=== PATIENT | male | born 1995 ===

== ENCOUNTER 2016-11-15 15:49 | Emergency (ER) | payer OTHER ==
[~2016-11-15] VITALS: Ht 167.6 cm; Wt 78.7 kg
[2016-11-15 15:58] VITALS: TEMP 36.7; Ht 167.6 cm; Wt 78.7 kg
--- NOTE | 2016-11-15 16:41 | DIAGNOSTIC IMAGING REPORT ---
CHEST ONE VIEW PORTABLE CLINICAL HISTORY: Chest Pain dyspnea COMPARISON STUDY: No previous studies for comparison. FINDINGS: The bones soft tissues and hemidiaphragms are normal. The cardiomediastinal silhouette is normal. The lungs are clear. The pulmonary vasculature is normal. IMPRESSION: Negative chest. Electronically signed by: Eliseo Escobar M.D. 11/15/2016 4:40 PM Dictated Date/Time: 11/15/2016 4:40 PM
[2016-11-15 16:51] LABS: BASO % 0.3 %; BASO ABS # 0.03 K/uL (0-0.2); COMPLETE YES; EOS % 1.3 %; HEMATOCRIT 44.8 % (42-52); IG% 0.1 %; LYMPH % 34.7 %; LYMPH ABS # 3.13 K/uL (1.2-3.4); MEAN CORPUSCULAR HEMOGLOBIN 31.9 pg (25-34); MEAN CORPUSCULAR HGB CONC 37.1 g/dl (32-36); MEAN PLATELET VOLUME 9.4 fL (7.4-10.4); MONO % 7.9 %; NEUT % 55.7 %; PLATELET COUNT 328 K/uL (130-400); RED BLOOD COUNT 5.21 M/uL (4.7-6.1); WHITE BLOOD COUNT 9.03 K/uL (4.8-10.8)
[2016-11-15 17:08] LABS: BLOOD UREA NITROGEN 17 mg/dl (7-18); BUN/CREATININE RATIO 15.5 (10-20); CALCIUM 9.2 mg/dl (8.5-10.1); CARBON DIOXIDE 29 mmol/L (21-32); CHLORIDE 103 mmol/L (98-107); GLUCOSE 109 mg/dl (70-99); POTASSIUM 3.9 mmol/L (3.5-5.1); SODIUM 140 mmol/L (136-145)
[2016-11-15 17:13] LABS: CKMB/CK RATIO 0.5 (0-3.0)
[2016-11-15] MEDS ORDERED: KETOROLAC TROMETHAMINE 30 MG/ML VIAL IV STA (17:18)
[2016-11-15 17:49] VITALS: BP 120/67; PULSE 59; O2SAT 98
--- NOTE | 2016-11-15 18:39 | EMERGENCY ROOM VISIT NOTE ---
History Report prepared by Michi: Lio Cloud Under the Supervision of: Dr. Deonte Suazo D.O. First contact with patient: 16:01 Chief Complaint: CARDIAC ASSESSMENT Stated Complaint: CHEST PAIN- REFERRED BY [facility] History of Present Illness The patient is a 21 year old male who presents to the Emergency Room with complaints of persistent left-sided chest pain that started yesterday around 1999. He says that the pain worsened earlier this morning today. He describes the pain as a pulsating pressure. The patient was seen at [facility] prior to arrival and had an EKG, which revealed an incomplete right bundle branch block. He was then referred here. The patient says he has never had this kind of pain before. The patient denies any shortness of breath, arm or jaw pain. Nothing makes the pain worse or better. He has no history of blood clots and no family history of heart disease. Denies any history of diabetes, hypertension, hyperlipidemia or CAD. He is a smoker. The patient went to [place] last month for training. He says he has no medical problems and has not had any surgeries. Denies a history of hemoptysis, history of cancer, swelling of calves, or previous blood clots. The patient denies any recent drug use. Source of History: patient Onset: Yesterday around 1999 Position: chest (left) Quality: pressure Timing: worsening (today), other (persistent) Associated Symptoms: No SOB (today) Note: Associated symptoms: Denies any arm or jaw pain. Review of Systems See HPI for pertinent positives & negatives. A total of 10 systems reviewed and were otherwise negative. Past Medical & Surgical Medical Problems: (1) No chronic problems Family History No pertinent family history Social History Smoking Status: Current Every Day Smoker Alcohol Use: occasionally Drug Use: none Marital Status: single Housing Status: lives with roommate Occupation Status: employed Current/Historical Medications No Active Prescriptions or Reported Meds Allergies Coded Allergies: No Known Allergies (Unverified , 11/15/16) Physical Exam Vital Signs Date Time Temp Pulse Resp B/P Pulse Ox O2 Delivery O2 Flow Rate FiO2 11/15/16 17:49 59 18 120/67 98 Room Air 11/15/16 16:34 Room Air 11/15/16 16:26 65 11/15/16 15:58 36.7 71 18 135/80 97 Room Air Physical Exam GENERAL: sitting up in bed, alert, well appearing, well nourished, no distress, non-toxic EYE EXAM: normal conjunctiva, PERRL and EOM's grossly intact OROPHARYNX: no exudate, no erythema, lips, buccal mucosa, and tongue normal and mucous membranes are moist NECK: supple, no nuchal rigidity, no adenopathy, non-tender LUNGS: Clear to auscultation. Normal chest wall mechanics CHEST: Reproducible left anterior chest wall tenderness HEART: no murmurs, S1 normal and S2 normal ABDOMEN: abdomen soft, non-tender, normo-active bowel sounds, no masses, no rebound or guarding. BACK: Back is symmetrical on inspection and there is no deformity, no midline tenderness, no CVA tenderness. SKIN: no rashes and no bruising UPPER EXTREMITIES: upper extremities are grossly normal. Radial pulses equal bilaterally. LOWER EXTREMITIES: No pitting edema. Calves equal bilaterally. NEURO EXAM: Normal sensorium, cranial nerves II-XII grossly intact, normal speech, no gross weakness of arms, no gross weakness of legs. Medical Decision & Procedures ER Provider Diagnostic Interpretation: Xray results per the radiologist and my interpretation. CHEST ONE VIEW PORTABLE CLINICAL HISTORY: Chest Pain dyspnea COMPARISON STUDY: No previous studies for comparison. FINDINGS: The bones soft tissues and hemidiaphragms are normal. The cardiomediastinal silhouette is normal. The lungs are clear. The pulmonary vasculature is normal. IMPRESSION: Negative chest. Electronically signed by: Eliseo Escobar M.D. 11/15/2016 4:40 PM Dictated Date/Time: 11/15/2016 4:40 PM Laboratory Results 11/15/16 16:35 Red Blood Count 5.21, Mean Corpuscular Volume 86.0, Mean Corpuscular Hemoglobin 31.9, Mean Corpuscular Hemoglobin Concent 37.1, Mean Platelet Volume 9.4, Neutrophils (%) (Auto) 55.7, Lymphocytes (%) (Auto) 34.7, Monocytes (%) (Auto) 7.9, Eosinophils (%) (Auto) 1.3, Basophils (%) (Auto) 0.3, Neutrophils # (Auto) 5.03, Lymphocytes # (Auto) 3.13, Monocytes # (Auto) 0.71, Eosinophils # (Auto) 0.12, Basophils # (Auto) 0.03 11/15/16 16:35 Test 11/15/16 16:35 White Blood Count 9.03 K/uL (4.8-10.8) Red Blood Count 5.21 M/uL (4.7-6.1) Hemoglobin 16.6 g/dL (14.0-18.0) Hematocrit 44.8 % (42-52) Mean Corpuscular Volume 86.0 fL (80-100) Mean Corpuscular Hemoglobin 31.9 pg (25-34) Mean Corpuscular Hemoglobin Concent 37.1 g/dl (32-36) Platelet Count 328 K/uL (130-400) Mean Platelet Volume 9.4 fL (7.4-10.4) Neutrophils (%) (Auto) 55.7 % Lymphocytes (%) (Auto) 34.7 % Monocytes (%) (Auto) 7.9 % Eosinophils (%) (Auto) 1.3 % Basophils (%) (Auto) 0.3 % Neutrophils # (Auto) 5.03 K/uL (1.4-6.5) Lymphocytes # (Auto) 3.13 K/uL (1.2-3.4) Monocytes # (Auto) 0.71 K/uL (0.11-0.59) Eosinophils # (Auto) 0.12 K/uL (0-0.5) Basophils # (Auto) 0.03 K/uL (0-0.2) RDW Standard Deviation 39.7 fL (36.4-46.3) RDW Coefficient of Variation 12.6 % (11.5-14.5) Immature Granulocyte % (Auto) 0.1 % Immature Granulocyte # (Auto) 0.01 K/uL (0.00-0.02) D-Dimer < 190 ug/L FEU (0-500) Anion Gap 8.0 mmol/L (3-11) Est Creatinine Clear Calc Drug Dose 104.8 ml/min Estimated GFR () 110.6 Estimated GFR (Non- 95.5 BUN/Creatinine Ratio 15.5 (10-20) Calcium Level 9.2 mg/dl (8.5-10.1) Total Creatine Kinase 215 U/L (39-308) Creatine Kinase MB 1.0 ng/ml (0.5-3.6) Creatine Kinase MB Ratio 0.5 (0-3.0) Troponin I < 0.015 ng/ml (0-0.045) Laboratory results per my review. Medications Administered Medications (Trade) Dose Ordered Sig/Tad Route Start Time Stop Time Status Last Admin Dose Admin Ketorolac Tromethamine (Toradol Inj) 30 mg NOW STAT IV 11/15/16 17:18 11/15/16 17:19 DC 11/15/16 17:46 30 MG ECG Indication: chest pain Rate (beats per minute): 63 Rhythm: normal sinus Findings: no ectopy, other (normal axis, early R-wave progression) ED Course ED COURSE: Vital signs were reviewed and showed normal vitals The patients medical record was reviewed The above diagnostic studies were performed and reviewed. ED treatments and interventions as stated above. 1612: The patient was evaluated in room A9B. A complete history and physical examination was performed. 1718: Ordered Toradol Inj 30 mg IV. 1727: Upon reevaluation, the patient is resting comfortably.I discussed my findings with the patient and he understands and agrees with the treatment plan. Based on the patients age, coexisting illnesses, exam and lab findings the decision to treat as an outpatient was made. The patient remained stable while under my care. The patient appeared well at the time of discharge. Medical Decision Differential diagnoses includes but is not limited to acute coronary syndrome, myocardial infarction, pericarditis, pulmonary embolus, aortic dissection, pneumonia, pneumothorax, musculoskeletal, shingles, esophageal. Patient is a 21-year-old male who presents the ER for chest pain located on his left side. It is reproducible on exam. Patient was referred in by [facility]. Pain has been present since 8 PM last night. No radiation or exertional symptoms. He is very active in the [employer]. No cardiac risk factors with the exception of smoking. Only PE risk factor is a recent trip to [place]. D-dimer was negative. EKG was unremarkable. Troponin was negative with chest pain greater than 8 hours. Chest x-ray was unremarkable. Remainder of labs were unremarkable. Patient was updated at bedside and discharged to follow -up with his PCP as I favor this is likely muscle skeletal chest pain. Discussed with Pt concerning signs and symptoms to watch out for. Pt was instructed to follow up with their PCP and discussed with the patient their option to return to the ED at anytime for persistent or worsening symptoms. The appropriate anticipatory guidance and out-patient management, including indications for return to the emergency department, were explained at length to the patient and understood. Impression Primary Impression: Chest pain Scribe Attestation The scribe's documentation has been prepared under my direction and personally reviewed by me in its entirety. I confirm that the note above accurately reflects all work, treatment, procedures, and medical decision making performed by me. Departure Information Dispostion Home / Self-Care Prescriptions No Active Prescriptions or Reported Meds Referrals No Doctor, Assigned (PCP) Forms IMPORTANT VISIT INFORMATION Patient Instructions Chest Pain - [facility] Additional Instructions Please follow up with your primary care doctor or if you are a student [facility] with in the next 24 hours. Any worsening of your symptoms, please return to the ED immediately. This includes worsening pain, shortness of breath, passing out, weakness or numbness in arms or legs, or any other concerning signs or symptoms from your standpoint. Please take Motrin or Tylenol as needed for pain. Problem Qualifiers Primary Impression: Chest pain Chest pain type: unspecified Qualified Codes: R07.9 - Chest pain, unspecified
== END 2016-11-15 17:55 | disposition home or self-care (01) ==
LOC: C.EDB 15:52 → C.EDA 17:55
DX: R07.9 Chest pain, unspecified (principal); F17.210 Nicotine dependence, cigarettes, uncomplicated